=== PATIENT | female | born 1995 | race Two or more races ===

== ENCOUNTER 2018-08-25 08:45 | Inpatient (IN) | payer OTHER ==
[~2018-08-25] VITALS: Ht 157.5 cm; Wt 64.0 kg
[2018-09-01] MEDS ORDERED: PRENATAL TABLE1 EAC1 PO (11:28)
== END 2018-09-04 16:15 | disposition home or self-care (01) | DRG 785 ==
LOC: OB/GYN 09-01 10:58 → LDR 09-01 10:58 → O/R 09-01 21:10 → OB/GYN 09-01 21:55 → LDR 09-04 08:45 → OB/GYN 09-04 16:15
PROVIDERS: Specialist
PROC: 4A1HXCZ Monitoring of Products of Conception, Cardiac Rate, External Approach (ICD-10-PCS; 2018-09-01)
PROC: 4A033R1 Measurement of Arterial Saturation, Peripheral, Percutaneous Approach (ICD-10-PCS; 2018-09-01)
PROC: 0UB70ZZ Excision of Bilateral Fallopian Tubes, Open Approach (ICD-10-PCS; 2018-09-01)
PROC: 10D00Z1 Extraction of Products of Conception, Low, Open Approach (ICD-10-PCS; principal; 2018-09-01 16:00)
DX: O32.8XX0 Maternal care for other malpresentation of fetus, not applicable or unspecified (principal); Z3A.39 39 weeks gestation of pregnancy; Z37.0 Single live birth; O34.211 Maternal care for low transverse scar from previous cesarean delivery; O75.82 Onset (spontaneous) of labor after 37 completed weeks of gestation but before 39 completed weeks gestation, with delivery by (planned) cesarean section; Z30.2 Encounter for sterilization